=== PATIENT | female | born 1970 | race Caucasian/White ===

== ENCOUNTER → 2017-09-20 | Outpatient (CLI) | payer OTHER | LOC: M.CT 08-23 11:00 | DX: Z13.6 Encounter for screening for cardiovascular disorders (principal) ==

== ENCOUNTER → 2017-09-20 | Outpatient (CLI) | payer OTHER | LOC: M.RAD 08-23 10:00 | DX: Z12.31 Encounter for screening mammogram for malignant neoplasm of breast (principal) ==